=== PATIENT | female | born 1975 | race Caucasian/White ===

== ENCOUNTER 2017-11-23 20:31 | Emergency (ER) | payer BC ==
[~2017-11-23] VITALS: Ht 152.4 cm; Wt 74.8 kg
--- NOTE | 2017-11-23 20:41 | NUR ---
BIB SELF. PT AA/OX 4. COMPLAINING OF ALLERGIC RXN. REDNESS ON RT FOREARM AND AROUND THE MOUTH. NEG ANGIOEDEMA. NEG SOB. VSS. STABLE CONDITION. MD AT BEDSIDE FOR EVAL. AWAITING ORDERS.
[2017-11-23 20:42] VITALS: BP 121/83
[2017-11-23] MEDS ORDERED: predniSONE 20 MG TABLET PO ONE (21:00)
[2017-11-23] MEDS ORDERED: predniSONE 20 MG TABLET ONE (21:15)
[2017-11-23] MEDS ORDERED: diphenhydrAMINE HCL 25 MG CAPSULE PO ONE (21:30)
[2017-11-23] MEDS ORDERED: diphenhydrAMINE HCL 25 MG CAPSULE ONE (21:30)
== END 2017-11-23 21:54 | disposition home or self-care (01) ==
LOC: ER 20:35
DX: R21 Rash and other nonspecific skin eruption (principal); R22.0 Localized swelling, mass and lump, head; G36.0 Neuromyelitis optica [Devic]; Z88.8 Allergy status to other drugs, medicaments and biological substances
CPT/HCPCS: 99283; A4606; J7512; Q0163; Z7610